=== PATIENT | female | born 2000 | race Caucasian/White ===

== ENCOUNTER → 2020-09-20 11:06 | Outpatient (CLI) | payer OTHER, SELFPAY ==
--- NOTE | 2020-09-20 11:11 | XR_ITS ---
PROCEDURE: XR FOOT WT BEARING LT 3V CLINICAL INDICATION: pain COMPARISON: No exams were available for comparison FINDINGS: No fracture or dislocation. No lytic or blastic change. There is normal mineralization. The joint spaces are well-preserved. No significant degenerative/arthritic changes. No erosive changes evident. Other findings:None. IMPRESSION: No acute findings. Dictated by: Jeronimo Richards MD 09/20/2020 11:44 Jeronimo Richards MD in [place] 09/20/2020 11:44
--- NOTE | 2020-09-20 11:11 | XR_ITS ---
PROCEDURE: XR FOOT WT BEARING RT 3V CLINICAL INDICATION: pain COMPARISON: No exams were available for comparison FINDINGS: No fracture or dislocation. No lytic or blastic change. There is normal mineralization. The joint spaces are well-preserved. No significant degenerative/arthritic changes. No erosive changes evident. Other findings:None. IMPRESSION: No acute findings. Dictated by: Jeronimo Richards MD 09/20/2020 11:47 Jeronimo Richards MD in [place] 09/20/2020 11:47
== END ==
PROVIDERS: PCP Family Medicine; Visit Provider Podiatrist
DX: M79.672 Pain in left foot (principal); M79.671 Pain in right foot
CPT/HCPCS: 73630

== ENCOUNTER → 2021-10-17 11:56 | Outpatient (CLI) | payer OTHER, SELFPAY ==
[2021-10-17 13:52] LABS: HCG,Quantitative < 2 mIU/ml (0-5.42)
== END ==
PROVIDERS: Visit Provider Obstetrics & Gynecology
DX: Z30.430 Encounter for insertion of intrauterine contraceptive device (principal)
CPT/HCPCS: 36415; 84702

== ENCOUNTER → 2021-11-06 09:07 | Outpatient (CLI) | payer OTHER, SELFPAY ==
[2021-11-06 09:29] LABS: Influenza A, PCR Not Detected (NotDetected); Influenza B, PCR Not Detected (NotDetected)
[2021-11-06 10:00] LABS: Coronavirus 19, PCR Detected (NotDetected)
== END ==
LOC: UTC.OUT 09:08 → COVID.OUT 09:11
PROVIDERS: PCP Family Medicine; Visit Provider Nurse Practitioner
DX: U07.1 COVID-19 (principal)
CPT/HCPCS: C9803; U0003; U0005

== ENCOUNTER 2022-05-02 18:14 | Emergency (ER) | payer OTHER, SELFPAY ==
[2022-05-02 18:50] VITALS: BP 131/78; PULSE 100; RESP 18; TEMP 37.1; O2SAT 99; BMI 19.1
--- NOTE | 2022-05-02 19:13 | HMH.EDUTC ---
[facility] [place] Clinical Impression: Poison glenda dermatitis Disposition: Home, Self-Care Condition on Discharge: Good Instructions: Summertime Rashes: Poison Glenda, Social Circle, and [place], Poison Glenda, Poison Social Circle, Poison Sumac, DI for Poison Glenda Allergy Additional Instructions: Oatmeal baths may help to dry the rash Over the counter Benadryl may help with itching Over the counter Calamine lotion may help with itching and drying of rash Cool Compress may help with itching and irritation Start oral steriods tomorrow Return if needed Straight to ER if any life threatening symptoms Prescriptions: predniSONE [Prednisone 5mg Tab Dose-Pack] 5 mg PO UD DOSE PK 6 Days #21 tab Transmission Status: Sent to [facility] Referrals: Kirit Ernandez MD [Primary Care Provider] - As needed Time of Disposition: 19:32 Medical Decision Making - Nico Inquiry Pt receiving controlled substance: No Nico was queried for this patient: No Vital Signs: 05/02/22 18:50 Temperature 98.7 F Temperature Source Oral Pulse Rate [Right Brachial] 100 H Respiratory Rate 18 Blood Pressure [Right Arm] 131/78 Blood Pressure Mean [Right Arm] 95 Blood Pressure Source [Right Arm] Automatic Cuff Blood Pressure Position [Right Arm] Sitting 02 Sat by Pulse Oximetry 99 Oxygen Delivery Method Room Air Orders (Tests/Meds): ED MEDICATIONS Discontinued Medications Generic Name Dose Route Start Last Admin Trade Name Rocky PRN Reason Stop Dose Admin Methylprednisolone Sodium Succinate 125 mg 05/02/22 19:19 05/02/22 19:25 Methylprednisolone Sod Succ 125mg Vial IM 05/02/22 19:20 125 mg ONCE ONE Administration [facility] [place] - General Stated complaint: Rash Time Seen by Provider: 05/02/22 19:13 Mode of Arrival: Ambulatory Source of Information: Patient Limitations: No Limitations Description of Symptoms (Recalled from Triage Doc. by RN): PATIENT C/O POISON SUMAC ALL OVER SINCE LAST WEEKEND HEENT Symptoms (Recalled from RN notes): No Resp Symptoms (Recalled from RN notes): No Skin Symptoms (Recalled from RN notes): Yes MS Symptoms (Recalled from RN notes): No Functional Status (Recalled from RN notes): WNL - History of Present Illness Provider Complaint: Patient states that she did some yard work last weekend and got into either poison sumac or glenda States that she thought she could take care of it at home but it has continued to get worse and now all over the right side of her face, both arms left upper leg and ankle so she came in to get a shot - Related Data Previous Rx's Medication Instructions Recorded predniSONE [Prednisone 5mg Tab 5 mg PO UD DOSE PK 6 Days #21 tab 05/02/22 Dose-Pack] Allergies Allergy/AdvReac Type Severity Reaction Status Date / Time No Known Allergies Allergy Verified 10/18/21 15:08 - Worker's Comp Is this a Worker's Comp case?: No [facility] History - Hepatitis A Screen Attestation statement:: This patient has been screened for Hepatitis A risk factors. I have reviewed the patient's past medical history: Yes Medical History: Reports:: Migraine Other Surgeries: Yes: No Previous Surgery Amputation: No Fractures: No - Social History Smoking Status: Never smoker Alcohol Intake: never Substance Use Type: denies use Occupational Status: employed, student Housing: house Household Members: family Family Hx:: No significant family history GUM MAKER history: No GUM MAKER history ROS Obtained: Yes All systems reviewed & no additional complaints, Yes Systems reviewed as appropriate & no additional complaints - Constitutional Constitutional: Reports system reviewed and no additional complaints, except as docu, Denies body ache, Denies chills, Denies fever(s) - ENT Ears, Nose, Mouth, and Throat: Reports system reviewed and no additional complaints, except as docu - Cardiovascular Cardiovascular: Reports system reviewed and no additional complaints, except as docu - Respiratory Respiratory: Repo
[2022-05-02 19:35] VITALS: BP 131/78; PULSE 100; RESP 18; TEMP 37.1; O2SAT 99
== END 2022-05-02 19:38 | disposition home or self-care (01) ==
PROVIDERS: Emergency Provider Nurse Practitioner; PCP Family Medicine
DX: L23.7 Allergic contact dermatitis due to plants, except food (principal)
CPT/HCPCS: 96372; 99212; G0463

== ENCOUNTER → 2022-07-05 13:16 | Outpatient (CLI) | payer OTHER, SELFPAY ==
--- NOTE | 2022-07-05 13:17 | US_ITS ---
FINAL REPORT CLINICAL HISTORY: checking IUD for correct placement, placed 8 months ago FINDINGS: Transvaginal sonographic images of the pelvis were obtained. The uterus measures 6.5 x 3.8 x 2.8 cm. The endometrium measures 4 mm, which is within normal limits. No uterine mass is identified. An IUD is noted within the endometrial cavity. The right ovary measures 3.2 cm in length and left ovary measures 2.9 cm in length. Normal blood flow seen to the ovaries. Small follicles are present. There is no evidence of free fluid. IMPRESSION: No acute abnormality identified. IUD is noted within the endometrial cavity. Reviewed, Interpreted and Dictated by Obdulio Ferro III, MD Transcribed by Kristie Tucker Authenticated and [facility]
== END ==
PROVIDERS: PCP Family Medicine; Visit Provider Obstetrics & Gynecology
DX: Z97.5 Presence of (intrauterine) contraceptive device (principal)
CPT/HCPCS: 76830

== ENCOUNTER 2024-10-15 10:15 | Outpatient (CLI) | payer OTHER, SELFPAY ==
[2024-10-15 18:55] LABS: Basophils # 0.1 K/mm3 (0-0.2); Basophils % 1.1 % (0.1-2.0); Eosinophils # 0.2 K/mm3 (0.0-0.4); Hematocrit 40.5 % (37.0-47.0); Hemoglobin 14.2 g/dL (12.2-16.2); Lymphocytes # 1.7 K/mm3 (0.7-4.5); Lymphocytes % 23.1 % (10-50); Mean Corpuscular HGB Conc 35.2 g/dL (31.8-35.4); Mean Corpuscular Hemoglobin 32.2 pg (27.0-31.2); Mean Corpuscular Volume 91.3 fl (81-99); Mean Platelet Volume 7.9 fl (7.4-10.4); Monocytes # 0.4 K/mm3 (0.1-1.0); Monocytes % 5.3 % (1.7-9.3); Neutrophils # 4.8 K/mm3 (1.8-7.8); Neutrophils % 67.5 % (37.0-80.0); Platelet Count 283 K/mm3 (142-424); Red Blood Count 4.43 M/mm3 (4.20-5.40); Red Cell Distribution Width 12.4 % (11.5-17.5); White Blood Count 7.2 K/mm3 (4.8-10.8)
[2024-10-15 19:19] LABS: Alanine Aminotransferase 14 U/L (12-78); Alkaline Phosphatase 51 U/L (38-126); Anion Gap 14.2 mEq/L (5-15); Aspartate Amino Transferase 23 U/L (14-36); Bilirubin,Total 0.7 mg/dl (0.2-1.3); Blood Urea Nitrogen 10 mg/dl (7-17); Calcium 9.7 mg/dl (8.4-10.2); Carbon Dioxide 24 mmol/L (22.0-30.0); Chloride 106 mmol/L (98-107); Estimated Glomerular Filt Rate 123 ml/min (>60); GFR (African American) 149 ML/MIN (>60); Globulin 2.5 g/dL (1.3-3.2); Glucose 92 mg/dl (74-100); Potassium 4.2 mmoL/L (3.5-5.1); Sodium 140 mmol/L (136-145); Total Protein,Serum 7.5 g/dl (6.3-8.2)
[2024-10-15 19:50] LABS: Thyroid Stimulating Hormone 1.86 uIU/mL (0.465-4.68)
== END 2024-10-15 23:59 | disposition home or self-care (01) ==
LOC: LAB.DROPOF 10-16 10:16
PROVIDERS: PCP Family Medicine; Visit Provider Family Medicine
DX: Z00.00 Encounter for general adult medical examination without abnormal findings (principal)
CPT/HCPCS: 80050; 80053; 84443; 85025

== ENCOUNTER 2024-10-21 13:51 | Outpatient (CLI) | payer OTHER, SELFPAY ==
--- NOTE | 2024-10-21 13:59 | US_ITS ---
FINAL REPORT TECHNIQUE: Real-time grayscale and color ultrasound of the soft tissues of the neck was performed. CLINICAL HISTORY: swollen lymph node rt neck COMPARISON: None FINDINGS: Ultrasound images of the area of concern were obtained. Color Doppler images were submitted. The right submandibular salivary glands and parotid glands are unremarkable. There are some enlarged lymph nodes in the right neck. The largest measures 2.9 cm. Left submandibular glands and parotid glands are unremarkable. There are mildly prominent left cervical lymph nodes. The largest measures 1.6 cm. No fluid collections are seen. There are no additional abnormalities. IMPRESSION: Mildly enlarged right greater than left cervical lymph nodes, nonspecific. In a patient this age this is favored to be reactive. Reviewed, Interpreted and Dictated by Esperanza Lomax MD Transcribed by Kim Oleary Authenticated and [facility]
== END 2024-10-21 23:59 | disposition home or self-care (01) ==
LOC: RAD 13:53
PROVIDERS: PCP Family Medicine; Visit Provider Family Medicine
DX: R59.9 Enlarged lymph nodes, unspecified (principal)
CPT/HCPCS: 76536

== ENCOUNTER 2024-10-31 12:34 | Outpatient (CLI) | payer OTHER, SELFPAY ==
--- NOTE | 2024-10-31 12:37 | CA_ITS ---
APPROVED REPORT EXAM: Comprehensive 2D, Doppler, and color-flow Echocardiogram [employer] Contractor: Racheal Velazquez RDCS Ht: 5 ft 10 in Wt: 153lbs BSA: 1.86 BP: 132/76 mmHg Indications: EDEMA M-Mode Dimensions RVDd 1.54 cm (0.9-2.6) LA Diam 1.92 cm (1.9-4.0) LVDd 4.87 cm (3.5-5.7) LVDs 3.54 cm (3.5-5.7) IVSd 0.55 cm (0.6-1.1) PWd 0.58 cm (0.6-1.1) EF (Teich) 53.00% FS 27.30% EDV (Teich) 111.20 mL TAPSE 2.56 (<1.7) ESV (Teich) 52.30 mL LV Diastology E Decel Time 270 (160-240 msec) E/A Ratio 1.5 Mitral Valve MV E Max Hany. 72.0 (40-130 cm/s) MV A Velocity 47.0 (40-130 cm/s) E/A Ratio 1.54 MV PHT 79.0 ms Left Ventricle The left ventricle is normal size. The left ventricular systolic function is normal. The left ventricular ejection fraction is within the normal range. There is normal left ventricular wall thickness. There is normal LV segmental wall motion. The left ventricular diastolic function is normal. LVEF is 55%. Right Ventricle The right ventricle is normal size. The right ventricular systolic function is normal. Atria The left atrium size is normal. The right atrium size is normal. There is no Doppler evidence of interatrial shunt. Aortic Valve The aortic valve opens well. There is no aortic valvular stenosis. No aortic regurgitation is present. Mitral Valve The mitral valve is normal in structure. No evidence of mitral valve stenosis. Trace mitral regurgitation. Tricuspid Valve Tricuspid valve is grossly normal in structure and function. Trace tricuspid regurgitation. There is insufficient TR jet to estimate RVSP. Pulmonic Valve The pulmonary valve is normal in structure. Trace pulmonic regurgitation. Great Vessels The aortic root is normal in size. The ascending aorta is normal in size. IVC is normal in size and collapses >50% with inspiration. Pericardium There is no pericardial effusion. Other Information Study Quality: Adequate Conclusion Normal biventricular systolic function. No significant valvular stenosis or regurgitation. Electronically signed by : Avril Juarez MD 11/06/2024 23:46:30
== END 2024-10-31 23:59 | disposition home or self-care (01) ==
LOC: RT 12:35
PROVIDERS: PCP Family Medicine; Visit Provider Family Medicine
DX: R60.0 Localized edema (principal)
CPT/HCPCS: 93306